=== PATIENT | male | born 1975 | race Caucasian/White ===

== ENCOUNTER 2017-08-14 10:15 | Emergency (ER) | payer BC, MEDICAID ==
[2017-08-14] MEDS ORDERED: predniSONE 20 MG TABLET PO STA (12:23)
[2017-08-14] MEDS ORDERED: GABAPENTIN 100 MG CAPSULE PO STA (12:23)
[2017-08-14] MEDS ORDERED: oxyCOD/ACETAMIN 5 MG/325 MG TABLET PO STA (12:23)
--- NOTE | 2017-08-14 12:26 | ED Physician Documentation ---
PD HPI BACK PAIN - Stated complaint Stated Complaint: RT HIP /BACK PX - Chief complaint Chief Complaint: Back Pain - History obtained from History obtained from: Patient - History of Present Illness Timing - onset: Other (42-year-old gentleman with history of psoriasis and renal colic presents with ongoing pain of the right side of the back and hip. He has had it for as long as he can remember but he got worse about 3 weeks ago while lifting something heavy. He describes it as a dull and burning pain radiating from the right hip into the back and sometimes down the buttock and leg but not past the knee. There is no associated weakness, numbness, tingling of the saddle area or legs. No fevers.) Review of Systems Constitutional: reports: Reviewed and negative Cardiac: reports: Reviewed and negative Respiratory: reports: Reviewed and negative GI: reports: Reviewed and negative PD PAST MEDICAL HISTORY - Past Medical History Past Medical History: Yes : Kidney stones Psych: Depression, Anxiety, ADD/ADHD Musculoskeletal: Chronic back pain - Past Surgical History Past Surgical History: Yes - Present Medications Home Medications: Ambulatory Orders Medication Instructions Recorded Confirmed Gabapentin 300 mg PO TID #90 capsule 08/14/17 Nortriptyline [Pamelor] 25 mg PO DAILY 08/14/17 08/14/17 Oxycodone HCl/Acetaminophen 1 - 2 tab PO Q4H PRN #15 tablet 08/14/17 [Percocet 5-325 mg Tablet] Tamsulosin [Flomax] 1 tab PO DAILY 08/14/17 08/14/17 predniSONE [Deltasone] 20 mg PO [id number] #21 tab 08/14/17 - Allergies Allergies/Adverse Reactions: Allergies Allergy/AdvReac Type Severity Reaction Status Date / Time No Known Drug Allergies Allergy Verified 08/14/17 10:24 - Social History Does the pt smoke?: Yes Smoking Status: Current every day smoker Does the pt drink ETOH?: No Does the pt have substance abuse?: Yes Substance Use and Type: Marijuana - Immunizations Immunizations are current?: No - POLST Patient has POLST: No PD ED PE NORMAL - Vitals Vital signs reviewed: Yes - General General: Alert and oriented X 3, No acute distress - Cardiac Cardiac: RRR, No murmur - Respiratory Respiratory: No respiratory distress, Clear bilaterally - Abdomen Abdomen: Normal bowel sounds, Soft, Non tender - Back Back: No spinal TTP, Other (Tender in the right sciatic notch with psoriasis on the back. He has some pain with hip rotation but much more with straight leg raise on the right. The patient has equal and normal Achilles and patellar reflexes bilaterally. Normal sensation in all areas of the legs. Patient denies saddle anesthesia. Normal strength in flexion-extension at the ankles, knees, and flexion of the hips.) - Neuro Neuro: Alert and oriented X 3, Normal speech - Psych Psych: Normal mood, Normal affect Results - Vitals Vitals: Vital Signs - 24 hr 08/14/17 10:20 Temperature 37.5 C Heart Rate 59 L Respiratory 16 Rate Blood Pressure 118/75 O2 Saturation 100 Oxygen O2 Source Room air PD MEDICAL DECISION MAKING - ED course ED course: 42-year-old gentleman with history and physical examination consistent with sciatica.This patient has seemingly uncomplicated musculoskeletal back pain. The patient has no "red flags." Specifically denies IV drug use, fevers, incontinence, saddle anesthesia. Spinal epidural abscess was considered, given that the patient has no fever, is not diabetic, has no spinal tenderness, does not use IV drugs, and has no bilateral neurologic symptoms, the diagnosis of spinal epidural abscess is considered exceedingly unlikely. The [place] prescription monitoring program was queried with regard to this patient. No concerning findings were found. Departure - Departure Disposition: 01 Home, Self Care Clinical Impression: Sciatica Qualifiers: Laterality: right Qualified Code(s): M54.31 - Sciatica, right side Condition: Good Record reviewed to determine appropriate education?: Yes Instructions: ED Sciatica, ED Exercises Lumbar Muscles Follow-Up: [facility] [Provider Group] [facility] [Provider Group] Prescriptions: Gabapentin 300 mg PO TID #90 capsule Oxycodone HCl/Acetaminophen [Percocet 5-325 mg Tablet] 1 - 2 tab PO Q4H PRN #15 tablet PRN Reason: Pain predniSONE [Deltasone] 20 mg PO [id number] #21 tab Comments: Call your doctor to arrange a follow-up appointment, make the next available appointment. In the interim, return anytime if worse or if new symptoms develop. Do not drink or drive while taking narcotic pain medication. Note that many narcotic pain relievers also contain Tylenol/acetaminophen. Please ensure that your total dose of acetaminophen from all sources does not exceed 3 g (3000 mg) per day. You may get constipated while on this medication. Take a stool softener such as Colace twice a day while you are on it. Also add an [id number] laxative such as senna or MiraLAX on any day that you do not have a bowel movement. If you received a narcotic pain medication or sedative while in the emergency department, do not drive for the next 24 hours.
[2017-08-14 12:31] VITALS: BP 123/75
[2017-08-14] MEDS ORDERED: GABAPENTIN 300 MG CAPSULE ONE (12:33)
[2017-08-14] MEDS ORDERED: predniSONE 20 MG TABLET ONE (12:33)
[2017-08-14] MEDS ORDERED: oxyCOD/ACETAMIN 5 MG/325 MG TABLET PO ONE (12:33)
== END 2017-08-14 12:32 | disposition home or self-care (01) ==
LOC: ED 10:15
DX: M54.31 Sciatica, right side (principal); G89.29 Other chronic pain; F17.200 Nicotine dependence, unspecified, uncomplicated
CPT/HCPCS: 99283; A9270; J7512

== ENCOUNTER 2018-12-10 09:20 | Emergency (ER) | payer MEDICAID ==
[2018-12-10 09:30] VITALS: BP 126/79
--- NOTE | 2018-12-10 09:45 | ED Physician Documentation ---
History of Present Illness - Stated complaint Stated Complaint: PRESSLEY/FEVER - Chief complaint Chief Complaint: Fever - History obtained from History obtained from: Patient - Additonal information Additional information: Patient is a previously healthy 43-year-old male presenting with about 4-5 days of flulike symptoms and requesting a note for work so that he may return to work. Patient reports that he initially had a fever associated with general cold-like symptoms such as nasal congestion, rhinorrhea, and headache. Patient denies specific ear pain, throat pain, or difficulty breathing, but does report minimal, nonproductive cough. Patient also had mild diarrhea which has improved as well, but denied significant abdominal pain, vomiting, or urinary changes. Patient reports that he has been feeling much better over the weekend, but had one episode of profuse sweating and chills last night. Currently, he denies significant discomfort or other complaints.Patient reports symptoms improved with rest and hydration and denies particular Factors that worsen symptoms. Review of Systems Constitutional: reports: Fever Eyes: denies: Reviewed and negative Ears: denies: Reviewed and negative Nose: reports: Rhinorrhea / runny nose, Congestion Respiratory: reports: Cough. denies: Dyspnea PD PAST MEDICAL HISTORY - Past Medical History Past Medical History: Yes : Kidney stones Psych: Depression, Anxiety, ADD/ADHD Musculoskeletal: Chronic back pain - Past Surgical History Past Surgical History: Yes - Present Medications Home Medications: Ambulatory Orders Medication Instructions Recorded Confirmed No Known Home Medications 12/10/18 12/10/18 - Allergies Allergies/Adverse Reactions: Allergies Allergy/AdvReac Type Severity Reaction Status Date / Time No Known Drug Allergies Allergy Verified 12/10/18 09:30 - Social History Does the pt smoke?: Yes Smoking Status: Current every day smoker Does the pt drink ETOH?: No Does the pt have substance abuse?: Yes Substance Use and Type: Marijuana - Immunizations Immunizations are current?: No - POLST Patient has POLST: No PD ED PE NORMAL - General General: Alert and oriented X 3, No acute distress, Well developed/nourished - HEENT HEENT: Atraumatic, Moist mucous membranes, Pharynx benign - Cardiac Cardiac: RRR, No murmur - Respiratory Respiratory: No respiratory distress, Clear bilaterally - Abdomen Abdomen: Normal bowel sounds, Soft, Non tender, Non distended - Derm Derm: Normal color, Warm and dry, No rash - Extremities Extremities: No deformity - Neuro Neuro: Alert and oriented X 3, No motor deficit, No sensory deficit - Psych Psych: Normal mood, Normal affect Results - Vitals Vitals: Vital Signs - 24 hr 12/10/18 09:27 Temperature 36.9 C Heart Rate 57 L Respiratory 20 Rate Blood Pressure 126/79 O2 Saturation 100 Oxygen O2 Source Room air PD MEDICAL DECISION MAKING - ED course Complexity details: considered differential, d/w patient ED course: Patient presenting to the ED with request for return to work note. Patient reports a viral-like symptoms over the past several days and likely was experiencing influenza, viral URI, or other viral illness. Of lower suspicion for bronchitis, pneumonia, cardiac disease, otitis media or externa, mastoiditis, tonsillitis, pharyngitis, peritonsillar abscess, or other systemic illness, but considered. Do not the patient requires further interventions at this time, particularly as he is relatively symptom-free and physical exam is benign. Patient is no longer in the window of treatment for Tamiflu and therefore do not feel influenza testing is needed. Discussed supportive cares, return precautions, appropriate follow-up with patient who is agreeable. Appropriate work note provided. Departure - Departure Disposition: 01 Home, Self Care Clinical Impression: Viral syndrome Condition: Good Instructions: ED Viral Syndrome Follow-Up: Сергей Verma PA-C [Primary Care Provider] - Within 3 Days Comments: Recommend supportive care such as ibuprofen/Tylenol, hydration, rest, and follow-up with primary care physician in next 2-3 days. May return to work tomorrow or when you have not had a fever for at least 24 hours. Return to ED sooner if explains worsening symptoms or other concerns. Forms: Activity restrictions
== END 2018-12-10 09:55 | disposition home or self-care (01) ==
LOC: ED 09:20
DX: B34.9 Viral infection, unspecified (principal)
CPT/HCPCS: 99282; 99283

== ENCOUNTER 2021-02-01 10:33 | Emergency (ER) | payer MEDICAID ==
--- NOTE | 2021-02-01 10:47 | ED Physician Documentation ---
PD HPI UPPER EXT INJURY - Stated complaint Stated Complaint: LT ARM SWELLING - Chief complaint Chief Complaint: Trauma Ext - History obtained from History obtained from: Patient - History of Present Illness Location: Left, Forearm, Wrist Type of injury: Other (he states he does heavy repetitive motion with lifting and pulling at work ([employer]).). No: Fall, Twist Where injury occurred: Work Timing - onset: How many weeks ago (2 weeks of progressively work pain left forearm and radial side dorsal wrist at work. Unable to do usual work now, with today pain on even nonforceful ROM of the wrist. Feeling creakiness in forearm today.) Timing - duration: Weeks (2) Timing - details: Gradual onset, Still present Improved by: Rest. No: Meds Worsened by: Moving, Palpating Associated symptoms: Swelling (left dorsal distal forearm for couple days.). No: Weakness, Numbness Similar symptoms before: Has not had sx before Recently seen: Not recently seen Review of Systems Constitutional: denies: Fever, Chills Nose: denies: Rhinorrhea / runny nose, Congestion Throat: denies: Sore throat Respiratory: denies: Cough Skin: denies: Abrasion (s), Laceration (s) Neurologic: reports: Focal weakness (feeling weakness for extension and supination at wrist. Pain with those movements.). denies: Numbness PD PAST MEDICAL HISTORY - Past Medical History Past Medical History: Yes Cardiovascular: None Respiratory: None Neuro: Headaches, Migraines Endocrine/Autoimmune: Other GI: None : Kidney stones HEENT: Chronic vision loss Psych: Depression, Anxiety, ADD/ADHD Musculoskeletal: Chronic back pain Derm: Psoriasis - Past Surgical History Past Surgical History: Yes - Present Medications Home Medications: Ambulatory Orders Medication Instructions Recorded Confirmed HYDROcod/ACETAM 5/325 [[place] 5/325] 1 ea PO Q6H PRN #12 tablet 02/01/21 Ibuprofen [Motrin] 600 mg PO TID PRN #25 tab 02/01/21 - Allergies Allergies/Adverse Reactions: Allergies Allergy/AdvReac Type Severity Reaction Status Date / Time No Known Drug Allergies Allergy Verified 02/01/21 10:37 - Social History Does the pt smoke?: Yes Smoking Status: Current every day smoker Does the pt drink ETOH?: No Does the pt have substance abuse?: Yes Substance Use and Type: Marijuana - Immunizations Immunizations are current?: Yes - POLST Patient has POLST: No PD ED PE NORMAL - Vitals Vital signs reviewed: Yes - General General: Alert and oriented X 3, Well developed/nourished, Other (appears in pain with any ROM left wrist. ) - Derm Derm: Normal color, Warm and dry, No rash - Extremities Extremities: Other (there is crepitant feeling dorsal radial wrist with his ROM of the wrist c/w tendonitis. ) - Neuro Neuro: Alert and oriented X 3, No motor deficit (able to move left wrist and forearm but limited by pain. Main pain with hyperext of wrist and supination forearm. ), No sensory deficit, Normal speech Results - Vitals Vitals: Vital Signs - 24 hr 02/01/21 02/01/21 10:38 11:44 Temperature 37.1 C Heart Rate 56 L 65 Respiratory 16 18 Rate Blood Pressure 148/74 H 133/81 H O2 Saturation 100 99 Oxygen O2 Source Room air - Rads (name of study) left wrist Radiology: Prelim report reviewed (no fractures), See rad report PD MEDICAL DECISION MAKING - ED course Complexity details: reviewed results, considered differential (exam and symptoms very c/w acute tendonitis, presume from his work activity, which does use those wrist/forearm muscles regularly. ), d/w patient Departure - Departure Disposition: 01 Home, Self Care Clinical Impression: Forearm tendonitis Condition: Stable Record reviewed to determine appropriate education?: Yes Instructions: Tendonitis and Tenosynovitis Follow-Up: Harvey Coffey MD [Provider Admit Priv/Credential] - Prescriptions: Ibuprofen [Motrin] 600 mg PO TID PRN #25 tab PRN Reason: Pain HYDROcod/ACETAM 5/325 [[place] 5/325] 1 ea PO Q6H PRN #12 tablet PRN Reason: Pain Comments: Your x-ray appears normal. The symptoms and exam findings are consistent with forearm tendinitis. That is inflammation in the tendon sheaths and results from repetitive use or irritation of the forearm muscles. This should improve with anti-inflammatories, wrist brace, decreased use and is not necessarily likely to be in long-term problem. Follow-up with orthopedics if not improved over the next week. I would anticipate a lot of improvement over the first several days and resolved mostly by a week or so. Minimal to no use of the left hand and wrist for 2 days and then light duty for another 5. Anti-inflammatories of ibuprofen 3 times a day with food. To that add Tylenol or hydrocodone if needed for the short-term. Use the wrist brace to help protect range of motion of the wrist and therefore the tendons and muscles of the forearm. Forms: Activity restrictions Discharge Date/Time: 02/01/21 11:56
[2021-02-01] MEDS ORDERED: IBUPROFEN 600 MG TABLET PO STA (11:10)
[2021-02-01] MEDS ORDERED: HYDROcod/ACETAM 5/325 MG TABLET PO STA (11:10)
--- NOTE | 2021-02-01 11:43 | XRAY Report ---
PROCEDURE: Wrist 3 View LT INDICATIONS: wrist pain worsening for days TECHNIQUE: 3 views of the wrist were acquired. COMPARISON: None FINDINGS: Bones: No fractures or dislocations. No suspicious bony lesions. Scaphoid view: Not obtained. Soft tissues: No suspicious soft tissue calcifications. IMPRESSION: No trauma found, source of pain is not identified. Reviewed by: Yoni Monroy MD on 02/01/2021 11:42 AM PDT Approved by: Yoni Monroy MD on 02/01/2021 11:42 AM PDT Station ID: [id number]
[2021-02-01 11:44] VITALS: BP 133/81
== END 2021-02-01 11:56 | disposition home or self-care (01) ==
LOC: ED 10:33
DX: M70.832 Other soft tissue disorders related to use, overuse and pressure, left forearm (principal); X50.3XXA Overexertion from repetitive movements, initial encounter; Y93.89 Activity, other specified; Y99.0 Civilian activity done for income or pay; F17.200 Nicotine dependence, unspecified, uncomplicated
CPT/HCPCS: 73110; 99283; A9270

== ENCOUNTER 2021-02-07 08:00 | Outpatient (CLI) | payer MEDICAID ==
--- NOTE | 2021-02-07 15:05 | XRAY Report ---
PROCEDURE: Elbow 3 View LT INDICATIONS: L FOREARM PX TECHNIQUE: 3 views of the elbow were acquired. COMPARISON: None FINDINGS: Bones: No fractures or dislocations. No suspicious bony lesions. Soft tissues: No elbow joint effusion. No suspicious soft tissue calcifications. IMPRESSION: No acute fracture. No osseous lesion. If symptoms and/or clinical suspicion for pathology continue, f urther assessment with repeat plain films, or advanced imaging (e.g., CT, MRI, or bone scan) is recom mended for further assessment. Reviewed by: Erinn Quigley MD on 02/07/2021 3:03 PM PDT Approved by: Erinn Quigley MD on 02/07/2021 3:03 PM PDT Station ID: [id number]
== END 2021-02-07 23:59 | disposition home or self-care (01) ==
LOC: DI.N 08:00
PROVIDERS: ATTEND Physician Assistant
DX: M79.632 Pain in left forearm (principal)